=== PATIENT | female | born 1985 | race Caucasian/White ===

== ENCOUNTER 2017-12-31 06:21 | Day surgery (SDC) | payer BC ==
[2017-12-31 07:21] LABS: #Eosinphils 0.1 thou/uL (0.0-0.7); #Lymphocytes 1.9 thou/uL (1.20-3.40); #Monocytes 0.7 thou/uL (0.11-0.59); #Neutrophils 8.2 thou/uL (1.40-6.50); %Basophils 0.4 % (0.0-1.0); %Eosinophils 0.7 % (0.0-10.0); %Lymphocytes 17.5 % (21.0-51.0); %Monocytes 6.4 % (0.0-10.0); Hemoglobin 12.2 g/dL (12.0-16.0); Mean Corpuscular HGB CONC 34.4 g/dL (32.0-36.0); Mean Corpuscular Hemoglobin 30.4 pg (27.0-31.0); Mean Corpuscular Volume 88.4 fL (78.0-98.0); Mean Platelet Volume 8.3 fL (7.4-10.4); Platelet Count 194 thou/uL (130-400); Red Blood Cell (RBC) Count 4.02 mill/uL (4.20-5.40)
[2017-12-31 07:31] VITALS: BMI 29.2
[2017-12-31 07:45] LABS: ALT (SGPT) 10 U/L (8-55); AST (SGOT) 16 U/L (5-34); Albumin 3.3 g/dL (3.5-5.0); Alkaline Phosphatase 105 U/L (40-150); Anion Gap 11 mmol/L (10-20); BUN (Urea Nitrogen) 7 mg/dL (7.0-18.7); Bilirubin, Total 0.5 mg/dL (0.2-1.2); Calc. Creatinine Clearance 179 mL/min (70-130); Carbon Dioxide 20 mmol/L (22-29); Chloride 108 mmol/L (98-107); Estimated GFR-MDRD Greater than 90; Glucose 78 mg/dL (70-105); Potassium 3.6 mmol/L (3.5-5.1); Protein, Total 6.3 g/dL (6.0-8.3); Sodium 135 mmol/L (136-145)
[2017-12-31 08:24] LABS: Creatinine, Urine 28.23 mg/dL (47-110); Protein, Urine Random Quant Less than 10 mg/dL (1-14)
--- NOTE | 2017-12-31 08:35 | PDOC.EVN ---
Event Note - Event Note Event Note: Discharge Note dictated
--- NOTE | 2017-12-31 08:51 | PRG ---
DATE OF SERVICE: 12/31/2017 FOLLOWUP EVALUATION TIME OF EVALUATION: 08:15 to 08:21 LOCATION: Triage in Labor and Delivery bed A. In brief, this is a patient who was first evaluated by Sharon Ibanez refrigeration lead and was seen for blood p ressure evaluation. 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 Blood pressures were in the 140s/ 90s. She was also stated to have an episode of high blood pressure at her last visit. Her workup at that time was negative. She comes now just for monitoring of her lab evaluation. Her EGA is 36 weeks and 1 day. Although she had a headache earlier, this may have been related to her occupa tional shift, but now her headache has resolved. In Labor and Delivery, blood pressures are normal a nd her labs are within normal limits. Her urine protein to creatinine ratio is still pending, but as this will not acutely affect management, she can follow this up as an outpatient. I have evaluated the patient at bedside and confirmed that the nonstress test meets reactive criteria. There is no ev idence of labor. Although she had a headache it is thought to not be related to her hypertension and may be related to her occupational role. She states that her headache is not relieved and she would like to go home where she can rest and recuperate. She has a followup appointment at [facility] [place]. DIAGNOSES: 1. Possible mild gestational hypertension. 2. Reactive nonstress test. 3. EGA of 36 weeks and 1 day, reactive. 4. No evidence of severe disease.
--- NOTE | 2018-01-01 16:24 | PDOC.LDHP ---
Labor and Delivery H&P Chief complaint: other (elevated BP) HPI: 32 y/o G1 at 36w2d, patient of Dr. Chao, who presented for elevated BP and COPPOLA at work. 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 She took her blood pressures and found them to be in the 140s-150s/90s. She reportedly had elevated BPs at her last visit but had a negative workup. She denies any VB, LOF, ctx, or decreased FM. ROS neg for HEENT, CV, pulm, GI, , neuro, psych, skin, musculoskeletal, or constitutional symptoms other than mentioned above. OB History Details: First Current complications: none Past Medical History: None Current medications: pre- vitamins Previous surgical history: none Allergies/Adverse Reactions: Allergies Allergy/AdvReac Type Severity Reaction Status Date / Time No Known Allergies Allergy Unverified 12/31/17 07:19 Social history: none - Physical Exam Vital signs reviewed and normal: yes General: NAD, resting Lungs: nonlabored breathing Abdomen: gravid Extremeties: no edema FHT: category 1 (130s, mod variability, + accels, no decels) [place] contractions every: irregular - Assessment 32 y/o G1 at 36w2d with elevated BPs prior to presentation. BPs normal so far. Labs pending. status reassuring with reactive NST. - Plan -: Will hand off to Dr. Polk for remainder of care.
== END 2017-12-31 08:37 | disposition home or self-care (01) ==
LOC: L&D/OP 06:21 → EEVIPCON 06:21 → L&D/OP 08:37
PROVIDERS: ATTEND Student in an Organized Health Care Education/Training Program
DX: O99.89 Other specified diseases and conditions complicating pregnancy, childbirth and the puerperium (principal); R51 Headache; R03.0 Elevated blood-pressure reading, without diagnosis of hypertension; Z3A.36 36 weeks gestation of pregnancy
CPT/HCPCS: 36415; 80053; 82570; 84156; 85025; 99284

== ENCOUNTER 2018-01-04 08:42 | Day surgery (SDC) | payer BC ==
[2018-01-04 09:11] VITALS: BMI 29.9
--- NOTE | 2018-01-04 14:03 | PDOC.LDHP ---
Labor and Delivery H&P Chief complaint: contractions HPI: 32 y/o at 36w5d, patient of Dr. Chao, presents with ctx q 5 mins since 0100. She rates them a 09/20. Denies VB, LOF, or decreased FM. ROS neg for HEENT, CV, pulm, GI, , neuro, psych, skin, musculoskeletal, or constitutional symptoms other than mentioned above. OB History Details: None Current complications: gestational hypertension Current medications: pre- vitamins Previous surgical history: other (LEEP) Allergies/Adverse Reactions: Allergies Allergy/AdvReac Type Severity Reaction Status Date / Time No Known Allergies Allergy Verified 01/04/18 09:10 Social history: none - Physical Exam Vital signs reviewed and normal: yes General: NAD, resting Lungs: nonlabored breathing Abdomen: gravid Extremeties: no edema FHT: category 1 (130s, mod variability, + accels, no decels) [place] contractions every: irregular - Vaginal Exam cm dilated: 3 Effacement: 50% Station: -2 - Assessment 32 y/o at 36w5d with no e/o active labor. status reassuring with reactive NST. - Plan -: D/c home with precautions. Advised to keep all appointments.
== END 2018-01-04 09:30 | disposition home health service (06) ==
LOC: L&D/OP 08:42 → EEVIPCON 08:42 → L&D/OP 09:30
PROVIDERS: ATTEND Student in an Organized Health Care Education/Training Program
DX: O47.03 False labor before 37 completed weeks of gestation, third trimester (principal); O13.3 Gestational [pregnancy-induced] hypertension without significant proteinuria, third trimester; Z3A.36 36 weeks gestation of pregnancy
CPT/HCPCS: 36415; 82575; 84156; 99282

== ENCOUNTER 2018-01-13 06:37 | Inpatient (IN) | payer BC ==
[2018-01-13] MEDS ORDERED: NS w/ Oxytocin 10 units 500 ML ONE (07:21)
[2018-01-13 07:25] VITALS: BMI 30.1
--- NOTE | 2018-01-13 07:51 | PDOC.LDHP ---
Labor and Delivery H&P Chief complaint: scheduled induction HPI: 32yo at 38w0d by LMP for IOL due to GHTN. No PIH sx. Current gestational age (weeks): 38 Due date: 01/27/18 Dating criteria: last menstrual period Grav: 3 Para: 1 Current complications: none Abnormal US findings: No Past Medical History: VSD, normal echos during this , negative echo with MFM this Current medications: pre- vitamins Previous surgical history: other (rhinoplasty, thyroglossal duct cyst, LEEP) Allergies/Adverse Reactions: Allergies Allergy/AdvReac Type Severity Reaction Status Date / Time No Known Allergies Allergy Verified 01/13/18 07:25 Social history: none - Physical Exam Vital signs reviewed and normal: yes General: NAD Heart: RRR Lungs: CTAB Abdomen: gravid Extremeties: no edema FHT: category 1 [place] contractions every: 10min - Vaginal Exam cm dilated: 3 Effacement: 50% Station: -2 (arom clear) - OB Labs Blood type: B RH: positive Antibody Screen: negative HIV: negative RPR: negative HEPSAg: negative 1 hour GCT: positive 3 hour GTT: negative 0/4 values abn GBS: negative Rubella: immune - Assessment L&D Assessment: medically indicated induction - Plan Plan: admit to L&D, labor augmentation if indicated, informed consent obtained, anesthesia consult for pain management
[2018-01-13] MEDS ORDERED: NS / Oxytocin 40 units/1000ml 1,000 ML IV PRN (07:54)
[2018-01-13] MEDS ORDERED: Acetaminophen 500 MG TAB PO PRN (07:54)
[2018-01-13] MEDS ORDERED: Ondansetron PF 4 MG/2 ML Vial IVP PRN ×3 (07:54→10:07)
[2018-01-13] MEDS ORDERED: Butorphanol Tartrate 1 MG/ML VIAL SLOW IVP PRN (07:54)
[2018-01-13] MEDS ORDERED: Promethazine HCl 25 MG/ML VIAL IM PRN ×3 (07:54→10:07)
[2018-01-13] MEDS ORDERED: Carboprost 250 MCG/ML AMP IM PRN (07:54)
[2018-01-13] MEDS ORDERED: Lidocaine 1% (PF) 30 ML VIAL SC PRN (07:54)
[2018-01-13] MEDS ORDERED: HYDROcodone/Acetaminophen 5/325 mg Tablet PO PRN ×3 (07:54→17:14)
[2018-01-13] MEDS ORDERED: Misoprostol 200 MCG TAB PR PRN (07:54)
[2018-01-13] MEDS ORDERED: Diphenoxylate HCl/Atropine Tablet PO PRN (07:54)
[2018-01-13] MEDS ORDERED: Ibuprofen 800 MG TAB PO PRN (07:54)
[2018-01-13] MEDS ORDERED: NS w/ Oxytocin 10 units 500 ML IV SCH (08:00)
[2018-01-13 08:07] LABS: Hemoglobin 12.7 g/dL (12.0-16.0); Mean Corpuscular HGB CONC 33.2 g/dL (32.0-36.0); Mean Corpuscular Hemoglobin 29.7 pg (27.0-31.0); Mean Corpuscular Volume 89.5 fL (78.0-98.0); Mean Platelet Volume 8.8 fL (7.4-10.4); Platelet Count 215 thou/uL (130-400); RBC Distribution Width 12.4 % (11.5-14.5); Red Blood Cell (RBC) Count 4.28 mill/uL (4.20-5.40); White Blood Cell (WBC) Count 8.7 thou/uL (4.8-10.8)
[2018-01-13 08:31] LABS: ALT (SGPT) 9 U/L (8-55); AST (SGOT) 21 U/L (5-34); Albumin 3.4 g/dL (3.5-5.0); Alkaline Phosphatase 134 U/L (40-150); Anion Gap 13 mmol/L (10-20); BUN (Urea Nitrogen) 10 mg/dL (7.0-18.7); Bilirubin, Total 0.3 mg/dL (0.2-1.2); Calc. Creatinine Clearance 176 mL/min (70-130); Calcium 9.2 mg/dL (7.8-10.44); Carbon Dioxide 18 mmol/L (22-29); Chloride 106 mmol/L (98-107); Estimated GFR-MDRD Greater than 90; Globulin 2.8 g/dL (2.4-3.5); Glucose 79 mg/dL (70-105); Potassium 4.2 mmol/L (3.5-5.1); Protein, Total 6.2 g/dL (6.0-8.3); Sodium 133 mmol/L (136-145)
[2018-01-13 08:48] LABS: HBSAg Index 0.23 S/CO (0-0.99); Hep B Surf Ag Non-Reactive S/CO (NonReactive); Syphilis Antibody Nonreactive (Nonreactive); Syphilis Antibody Index 0.03 S/CO (<1.00 Non-Reactive)
[2018-01-13] MEDS ORDERED: Fentanyl 4 mcg/Bup 0.1% Cadd 100 ML ONE (08:50)
[2018-01-13 08:54] LABS: Bilirubin Negative (Negative); Blood, Urine Moderate (Negative); Clarity CLOUDY (Clear); Glucose, Urine (Dipstick) Negative (Negative); Leukocyte Large (Negative); Nitrite Negative (Negative); Protein, Urine (Dipstick) Negative (Neg-Trace); Specific Gravity, Urine 1.006 (1.002-1.036); Urobilinogen 0.2 mg/dL (0.2-1.0)
[2018-01-13 08:57] LABS: Hyaline Casts/LPF 0-3 HYALINE CAST LPF (0-3 Hyaline); Pathc Cast-AUWi Flag 0.14 (0-2.49)
[2018-01-13] MEDS ORDERED: Fentanyl 100 MCG/2 ML VIAL ONE (09:14)
[2018-01-13 09:20] LABS: Bacteria/HPF 1+ HPF (None Seen); Yeast-All Forms None Seen HPF (None Seen)
[2018-01-13] MEDS ORDERED: Fentanyl 100 MCG/2 ML VIAL EPIDURAL SCH (09:30)
[2018-01-13] MEDS: Lactated Ringer's 1,000 ML IV SCH ×2 (09:44→18:22)
[2018-01-13] MEDS ORDERED: Naloxone HCl 0.4 mg/ml Vial IVP PRN ×4 (10:06→10:07)
[2018-01-13] MEDS ORDERED: diphenhydrAMINE 50 MG/ML VIAL IVP PRN ×2 (10:06→10:07)
[2018-01-13] MEDS ORDERED: ePHEDrine/0.9% NaCl/PF SYRINGE 50 mg/10 ml SLOW IVP PRN ×2 (10:06→10:07)
[2018-01-13] MEDS ORDERED: Lactated Ringer's 500 ML IV PRN ×2 (10:06→10:07)
[2018-01-13] MEDS ORDERED: Eucerin (Mineral Oil/Petrolatum,White) 30 gm Jar TOP PRN ×2 (10:06→10:07)
[2018-01-13] MEDS ORDERED: Acetaminophen 325 MG TAB PO PRN ×2 (10:06→10:07)
[2018-01-13] MEDS ORDERED: Communication Order-Pharmacy FS SCH ×2 (10:15)
[2018-01-13] MEDS ORDERED: Fentanyl 4 mcg/Bupivacaine 0.1% Cassette 100 ML EPIDURAL SCH (10:15)
--- NOTE | 2018-01-13 13:37 | PDOC.OPDEL ---
OB Operative/Delivery Note Delivery Dr/Surgeon: Zhanna Assist: n/a Pre-Delivery Diagnosis: medically indicated induction Procedure/Post Delivery Dx: spontaneous vaginal delivery Weeks gestation: 38 Anesthesia: epidural - Findings A Sex: female - 1 min: 9 - 5 min: 9 - Additional Findings/Plan Placenta delivered: spontaneous Repaired Obstetrical Laceration: 1st degree (repaired with 2-0 vicryl for hemostasis) Estimated blood loss: 991cc qbl Compilations/Other Findings: immediate following baby delivery at 1315 holden trickle noted from vagina, cord clamped and cut immediately, gentle traction on placenta, pitocin started, placenta delivered 1324 and following placental delivery clot and blood collected behind placenta present, large amount, immediate bimanual massage and call for uterotonics, uterus quickly clamped down and bleeding was appropriate, laceration then repaired and cytotec 800mcg placed prn for prevention of further bleeding. Post delivery plan: routine recovery
[2018-01-13] MEDS ORDERED: Bupivacaine 0.25% HCL 30 ML VIAL ONE (15:00)
[2018-01-13] MEDS ORDERED: Milk Of Magnesia 30 ML UDCUP PO PRN (17:14)
[2018-01-13] MEDS ORDERED: Lanolin Ointment 7 GM TUBE TOP PRN (17:14)
[2018-01-13] MEDS ORDERED: diphenhydrAMINE 25 MG CAP PO PRN (17:14)
[2018-01-13] MEDS ORDERED: Preparation H Ointment 28 GM TUBE PR PRN (17:14)
[2018-01-13] MEDS ORDERED: NS / Oxytocin 40 units/1000ml 1,000 ML IV SCH (17:14)
[2018-01-13] MEDS ORDERED: Bisacodyl 10 MG SUPP PR PRN (17:14)
[2018-01-13] MEDS ORDERED: Adacel (T-DAP) 0.5 ML VIAL IM ONE (17:14)
[2018-01-13] MEDS ORDERED: Benzocaine/Menthol 20-0.5% 60 ML CAN TOP PRN (17:14)
[2018-01-13] MEDS: Ferrous Sulfate 325 MG TAB PO SCH (18:22)
[2018-01-13] MEDS: Docusate Calcium (SURFAK) 240 MG CAP PO SCH (21:34)
[2018-01-13] MEDS: Ibuprofen 800 MG TAB PO SCH (21:39)
[2018-01-14] MEDS: Ibuprofen 800 MG TAB PO SCH ×3 (04:57→21:11)
[2018-01-14 06:05] LABS: Hemoglobin 9.8 g/dL (12.0-16.0); Mean Corpuscular HGB CONC 33.8 g/dL (32.0-36.0); Mean Corpuscular Hemoglobin 30.4 pg (27.0-31.0); Mean Corpuscular Volume 89.8 fL (78.0-98.0); Mean Platelet Volume 8.1 fL (7.4-10.4); Platelet Count 176 thou/uL (130-400); RBC Distribution Width 12.2 % (11.5-14.5); Red Blood Cell (RBC) Count 3.23 mill/uL (4.20-5.40); White Blood Cell (WBC) Count 12.4 thou/uL (4.8-10.8)
--- NOTE | 2018-01-14 07:49 | PDOC.PP ---
Post Progress Note Post Day #: 1 Subjective: Doing well PO intake tolerated: yes Flatus: yes Ambulation: yes Vital Signs (12 hours) Temp Pulse Resp BP Pulse Ox 01/14/18 05:00 98.0 F 71 20 124/67 01/14/18 00:00 97.9 F 74 18 130/64 01/13/18 20:00 98.3 F 82 20 135/62 98 Weight Weight 198 lb - Physical Examination Cardiovascular: no m/r/g Respiratory: clear to auscultation bilaterally Abdominal: + bowel sounds, appropriately TTP Extremities: negative homans (B) Neurological: no gross focal deficits Psychiatric: A&Ox3, normal affect Result Diagrams: 01/14/18 05:49 01/13/18 07:10 Additional Labs: Post Labs Blood Type B POSITIVE 01/13/18 07:10 Hep Bs Antigen Non-Reactive S/CO (NonReactive) 01/13/18 07:10 (1) Vaginal delivery Code(s): O80 - ENCOUNTER FOR FULL-TERM UNCOMPLICATED DELIVERY Status: Acute - Assessment/Plan PPD1 with QBL around 900ml. Hct 29. BPs have been normal (<140/90) , although there was a question of mild PIH). We will obs today. She expressed that she may want to go home today but I recommended obs until tomorrow AM for BP checks.
[2018-01-14] MEDS: Docusate Calcium (SURFAK) 240 MG CAP PO SCH ×2 (08:35→21:11)
[2018-01-14] MEDS: Prenatal Vitamin 1 TAB PO SCH (08:35)
[2018-01-14] MEDS: Ferrous Sulfate 325 MG TAB PO SCH ×2 (08:36→17:40)
[2018-01-14] MEDS ORDERED: Ibuprofen 800 MG TAB PO SCH (17:00)
[2018-01-15] MEDS: Ibuprofen 800 MG TAB PO SCH (05:16)
--- NOTE | 2018-01-15 06:43 | PDOC.PP ---
Post Progress Note Post Day #: 2 PO intake tolerated: yes Flatus: yes Ambulation: yes Vital Signs (12 hours) Temp Pulse Resp BP Pulse Ox 01/15/18 01:15 CDT 130/74 01/14/18 20:15 97.5 F L 82 18 133/63 98 Weight Weight 198 lb - Physical Examination General: NAD Cardiovascular: no m/r/g, RRR Respiratory: clear to auscultation bilaterally Abdominal: + bowel sounds, lochia, no distention Extremities: negative homans (B) Neurological: no gross focal deficits Psychiatric: A&Ox3, normal affect Result Diagrams: 01/14/18 05:49 01/13/18 07:10 Additional Labs: Post Labs Blood Type B POSITIVE 01/13/18 07:10 Hep Bs Antigen Non-Reactive S/CO (NonReactive) 01/13/18 07:10 - Assessment/Plan doing well dc home
[2018-01-15 08:21] VITALS: BP 137/64; TEMP 98.3
[2018-01-15] MEDS: Ferrous Sulfate 325 MG TAB PO SCH (09:01)
[2018-01-15] MEDS: Docusate Calcium (SURFAK) 240 MG CAP PO SCH (09:01)
[2018-01-15] MEDS: Prenatal Vitamin 1 TAB PO SCH (09:02)
== END 2018-01-15 10:15 | disposition home or self-care (01) | DRG 807 ==
LOC: L&D 06:37 → EEVIPCON 06:37 → 3SW 16:07
PROVIDERS: ADMIT Student in an Organized Health Care Education/Training Program; ATTEND Student in an Organized Health Care Education/Training Program
PROC: 10E0XZZ Delivery of Products of Conception, External Approach (ICD-10-PCS; principal; 2018-01-13)
PROC: 3E033VJ Introduction of Other Hormone into Peripheral Vein, Percutaneous Approach (ICD-10-PCS; 2018-01-13)
PROC: 0HQ9XZZ Repair Perineum Skin, External Approach (ICD-10-PCS; 2018-01-13)
DX: O13.4 Gestational [pregnancy-induced] hypertension without significant proteinuria, complicating childbirth (principal); Z37.0 Single live birth; Z3A.38 38 weeks gestation of pregnancy; O70.0 First degree perineal laceration during delivery
CPT/HCPCS: 36415; 51702; 80053; 81001; 85027; 86780; 86850; 86900; 86901; 87340; J3010; S0020

== ENCOUNTER 2018-02-07 08:57 | Outpatient (CLI) | payer BC ==
--- NOTE | 2018-02-07 12:24 | ULT ---
RIGHT AXILLA ULTRASOUND: HISTORY: A 33-year-old breast-feeding female with a palpable abnormality in the right axilla. FINDINGS: Sonographic evaluation of the right axilla demonstrates a 1.5 x 0.8 cm, well-circumscribed, nonshadow ing, solid, hypoechoic nodule with an echogenic hilum, consistent with a lymph node. POS: OFF
== END 2018-02-07 08:58 | disposition home or self-care (01) ==
LOC: BICMAMMO 08:57
PROVIDERS: ATTEND Student in an Organized Health Care Education/Training Program
DX: R22.2 Localized swelling, mass and lump, trunk (principal)
CPT/HCPCS: 76999

== ENCOUNTER 2018-11-24 08:52 | Emergency (ER) | payer BC, OTHER ==
[2018-11-24 10:15] LABS: HIV (1/2) Antibody/Antigen Non-Reactive (NonReactive); HIV 1/2 INDEX 0.08 S/CO (<1.00); Hep C IgG Ab Non-Reactive (NonReactive); Hep C Index 0.34 S/CO (0-0.79)
[2018-11-24 10:18] LABS: HBSAB Concentration 21.41 mIU/mL; Hep B Surf AB Reactive (NonReactive)
== END 2018-11-24 09:18 | disposition home or self-care (01) ==
LOC: ERS 08:52
DX: S61.231A Puncture wound without foreign body of left index finger without damage to nail, initial encounter (principal); W46.1XXA Contact with contaminated hypodermic needle, initial encounter
CPT/HCPCS: 36415; 86706; 86803; 87389; 99283

== ENCOUNTER 2020-08-28 16:22 | Outpatient (CLI) | payer BC ==
[2020-08-28 17:30] LABS: Anion Gap 13 mmol/L (10-20); BUN (Urea Nitrogen) 12 mg/dL (7.0-18.7); Calc. Creatinine Clearance 0 mL/min (70-130); Calcium 9.9 mg/dL (7.8-10.44); Carbon Dioxide 24 mmol/L (22-29); Chloride 103 mmol/L (98-107); Glucose 80 mg/dL (70-105); Sodium 136 mmol/L (136-145)
== END 2020-08-28 16:23 | disposition home or self-care (01) ==
LOC: LABBT 16:22
PROVIDERS: ATTEND Surgery
DX: Z01.812 Encounter for preprocedural laboratory examination (principal); K43.9 Ventral hernia without obstruction or gangrene
CPT/HCPCS: 80048

== ENCOUNTER 2020-09-02 05:57 | Day surgery (SDC) | payer BC ==
[2020-09-01 10:02] VITALS: BMI 27.3
[2020-09-02] MEDS ORDERED: Fentanyl 100 MCG/2 ML VIAL ONE ×3 (06:47→09:43)
[2020-09-02] MEDS ORDERED: Bupivacaine 0.25% HCL 30 ML VIAL ONE (06:50)
[2020-09-02] MEDS ORDERED: Lidocaine 1% w/Epinephrine 1:100K 20 ML VIAL ONE (06:50)
[2020-09-02] MEDS ORDERED: SUGAMMADEX SODIUM 500 MG/5 ML VIAL ONE (07:02)
[2020-09-02] MEDS ORDERED: Midazolam HCl 2 mg/2 ml Vial ONE (07:26)
[2020-09-02] MEDS ORDERED: Dexamethasone 20 MG/5 ML VIAL ONE (07:38)
[2020-09-02] MEDS ORDERED: Rocuronium Bromide 10 MG/ML (10ML VIAL) ONE (07:38)
[2020-09-02] MEDS ORDERED: PROPOFOL 200 MG/20 ML VIAL ONE (07:38)
[2020-09-02] MEDS ORDERED: Metoclopramide HCl 10 MG/2 ML VIAL ONE (07:38)
[2020-09-02] MEDS ORDERED: Lidocaine 1% PF 5 ML VIAL ONE (07:38)
[2020-09-02] MEDS ORDERED: Ketorolac Tromethamine 30 MG/ML VIAL ONE (07:38)
[2020-09-02] MEDS ORDERED: Ondansetron PF 4 MG/2 ML Vial ONE (07:38)
[2020-09-02] MEDS ORDERED: Indocyanine Green 25 MG/10 ML VIAL ONE (08:11)
[2020-09-02] MEDS ORDERED: Promethazine HCl 25 MG/ML VIAL ONE ×2 (09:43→11:43)
[2020-09-02] MEDS ORDERED: Acetaminophen 500 MG TAB ONE (10:36)
[2020-09-02] MEDS ORDERED: traMADol HCl 50 MG TAB ONE (11:36)
== END 2020-09-02 12:50 | disposition home or self-care (01) ==
LOC: SDC 05:57
PROVIDERS: ATTEND Surgery
PROC: 0WUF4JZ Supplement Abdominal Wall with Synthetic Substitute, Percutaneous Endoscopic Approach (ICD-10-PCS; principal; 2020-09-02)
DX: K43.9 Ventral hernia without obstruction or gangrene (principal); Z79.899 Other long term (current) drug therapy
CPT/HCPCS: C1781; J0690; J1100; J1885; J2250; J2405; J2550; J2704; J2765; J3010; S0020